=== PATIENT | female | born 1960 | race Caucasian/White ===

== ENCOUNTER 2017-05-07 21:41 | Observation (INO) | payer MEDICARE, MEDICAID ==
[2017-05-07] MEDS ORDERED: ASPIRIN 81 MG CHEWABLE TABLET PO ONE (21:45)
[2017-05-07 21:55] LABS: BASO % 0.5 % (0-6); EOS % 1.6 % (0-6); GRAN % 62.6 % (47-80); HEMATOCRIT 46.2 % (35.0-47.0); LYMPH % 26.6 % (16-45); MEAN CELL VOLUME 79.2 fl (81-97); MEAN CORPUSCULAR HEMOGLOBIN 25.7 pg (27-33); MEAN CORPUSCULAR HGB CONC 32.5 g/dl (32-36); MEAN PLATELET VOLUME 10.3 fl (7.4-10.4); MONO % 8.7 % (0-9); PLATELET COUNT 269 K/uL (130-400); RED BLOOD COUNT 5.83 M/uL (3.80-5.40); WHITE BLOOD COUNT W/O DIFF 10.9 K/uL (4.2-12.2)
--- NOTE | 2017-05-07 21:55 | Emergency Department Record ---
History of Present Illness - General Chief Complaint: Chest Pain Stated Complaint: CHEST PAIN Time Seen by Provider: 05/07/17 21:44 Source: Patient Mode of Arrival: Ambulatory Limitations: No limitations - History of Present Illness Initial Comments: 56 yo female presents to ED with a CC of chest pain x 1.5 hours prior to arrival. Patient reports that her symptoms have been constant, denies fevers, chills, cough, or recent illness. Patient deneis any precipitating factors, denies difficulty breathing or lower extremity swelling/pain. Patient denies previous heart problems. Patient did receive ASA and Nitro prior to arrival. MD Complaint: Chest pain Onset/Timin -: Minutes(s) Pain Location: Substernal Pain Radiation: None Severity: Moderate Severity scale (1-10): 5 Consistency: Constant Improves With: Nothing Worsens With: Nothing - Related Data On Oral Contraceptives: No Home Medications Medication Instructions Recorded Confirmed Last Taken Aspirin [Aspirin EC] 81 mg PO DAILY 05/07/17 05/07/17 05/07/17 Ferrous Sulfate 325 mg PO BID 05/07/17 05/07/17 05/07/17 Furosemide 40 mg PO DAILY 05/07/17 05/07/17 05/07/17 Lorazepam [Ativan] 1 mg PO TID 05/07/17 05/07/17 05/07/17 Metolazone [Zaroxolyn] 2.5 mg PO DAILY 05/07/17 05/07/17 05/07/17 Potassium Chloride [Klor-Con] 10 meq PO BID 05/07/17 05/07/17 05/07/17 Trazodone HCl 50 mg PO QHS 05/07/17 05/07/17 05/06/17 Allergies Allergy/AdvReac Type Severity Reaction Status Date / Time haloperidol [From Haldol] Allergy PT UNSURE Verified 05/07/17 22:01 OF REACTION haloperidol lactate Allergy PT UNSURE Verified 05/07/17 22:01 [From Haldol] OF REACTION lamotrigine [From Lamictal] Allergy PT UNSURE Verified 05/07/17 22:01 OF REACTION loxapine HCl [From Loxitane] Allergy PT UNSURE Verified 05/07/17 22:01 OF REACTION loxapine succinate Allergy PT UNSURE Verified 05/07/17 22:01 [From Loxitane] OF REACTION Sulfa (Sulfonamide Allergy PT UNSURE Verified 05/07/17 22:01 Antibiotics) OF REACTION Review of Systems Constitutional: Denies: Chills, Fever, Malaise, Night sweats Eyes: Denies: Eye discharge, Eye pain ENT: Denies: Congestion, Ear pain, Epistaxis Respiratory: Denies: Cough, Dyspnea Cardiovascular: Reports: Chest pain. Denies: Edema, Syncope Endocrine: Denies: Fatigue, Heat or cold intolerance Gastrointestinal: Denies: Abdominal pain, Nausea, Vomiting Genitourinary: Denies: Dysuria, Frequency Musculoskeletal: Denies: Arthralgia, Back pain, Gout, Joint swelling Skin: Denies: Bruising, Change in color Neurological: Denies: Confusion, Headache Psychiatric: Denies: Anxiety Hematological/Lymphatic: Denies: Anemia, Blood Clots Past Medical History - SOCIAL HISTORY Smoking Status: Never smoker Drug Use: None - RESPIRATORY Hx Respiratory Disorders: No - CARDIOVASCULAR Hx Cardio Disorders: Yes Hx Deep Vein Thrombosis: Yes - NEURO Hx Neuro Disorders: No - GI Hx GI Disorders: No - Hx Genitourinary Disorders: No - ENDOCRINE Hx Endocrine Disorders: No - MUSCULOSKELETAL Hx Musculoskeletal Disorders: No - PSYCH Hx Psych Problems: Yes Hx Anxiety: Yes Hx Depression: Yes (bipolar) - HEMATOLOGY/ONCOLOGY Hx Hematology/Oncology Disorders: No Family Medical History Family Hx Comment (NOT TO BE USED IN PLACE OF ITEMS BELOW): unknown Physical Exam - General General Appearance: Alert, Oriented x3, Cooperative, Mild distress Limitations: No limitations - Head Head exam: Atraumatic, Normocephalic, Normal inspection Head exam detail: negative: Abrasion, Contusion, Bennett's sign, General tenderness, Hematoma, Laceration - Eye Eye exam: Normal appearance. negative: Conjunctival injection, Periorbital swelling, Periorbital tenderness, Scleral icterus - ENT Ear exam: negative: Auricular hematoma, Auricular trauma Nasal Exam: negative: Active bleeding, Discharge, Dried blood, Foreign body Mouth exam: negative: Drooling, Laceration, Muffled voice, Tongue elevation - Neck Neck exam: Normal inspection. negative: Meningismus, Tenderness - Respiratory Respiratory exam: Normal lung sounds bilaterally. negative: Rales, Respiratory distress, Rhonchi, Stridor - Cardiovascular Cardiovascular Exam: Regular rate, Normal rhythm, Normal heart sounds - GI/Abdominal GI/Abdominal exam: Soft. negative: Rebound, Rigid, Tenderness - Rectal Rectal exam: Deferred - exam: Deferred - Extremities Extremities exam: Normal inspection. negative: Calf tenderness, Pedal edema, Tenderness - Back Back exam: Denies: CVA tenderness (R), CVA tenderness (L) - Neurological Neurological exam: Alert, Oriented X3. negative: Motor sensory deficit - Psychiatric Psychiatric exam: Normal affect, Normal mood - Skin Skin exam: Normal color. negative: Abrasion Type of lesion: negative: abrasion Course - Reevaluation(s) Reevaluation #1: 05/07/17 21:54 EKG: NSR 63 IVCD, Normal axis Nonspecific ST-T wave changes III only No previous available for comparison. Reevaluation #2: 05/07/17 23:08 Labs reviewed, potassium 2.4 (replacement potassium ordered). Labs are otherwise grossly unremarkable for an acute process. Will admit for severe hypokalemia and repeat Troponins. Medical Decision Making - Lab Data Result diagrams: 05/07/17 21:48 05/07/17 21:48 Disposition Disposition: Admit Clinical Impression: Hypokalemia Chest pain Qualifiers: Chest pain type: unspecified Qualified Code(s): R07.9 - Chest pain, unspecified Disposition: Still a Patient at [facility] Decision to Admit: Admit from ER Decision to Admit Date: 05/07/17 Decision to Admit Time: 23:09 Condition: (2) Stable Forms: Patient Portal Access Time of Disposition: 23:09 Quality - Quality Measures Quality Measures: N/A - Blood Pressure Screening Does Patient Have Any of the Following: No Blood Pressure Classification: Hypertensive Reading Systolic Measurement: 117 Diastolic Measurement: 102 Screening for High Blood Pressure: < First Hypertensive BP, F/U Documented > [ [id number]] First Hypertensive Follow-up Interventions: Referral to alternative/primary care provider.
[2017-05-07 22:19] LABS: ALB/GLOB RATIO 1.3 (1.1-1.8); ALBUMIN 4.5 g/dL (4.0-5.0); ALKALINE PHOSPHATASE 80 U/L (35-104); ALT/SGPT 17 U/L (<33); AST/SGOT 19 U/L (10.0-35.0); BLOOD UREA NITROGEN 56.2 mg/dL (12.6-42.6); CREATININE 0.8 mg/dL (0.5-0.9); EST GLOMERULAR FILTRATION RATE > 60 mL/min; GLUCOSE,RANDOM 168 mg/dL (74-109); TOTAL PROTEIN 8.1 g/dL (6.6-8.7)
[2017-05-07] MEDS ORDERED: MAGNESIUM SULFATE 16 MEQ in 0.9 % SODIUM CHLORIDE 100ML 100 ML IV ONE (23:10)
[2017-05-07] MEDS ORDERED: POTASSIUM CHLORIDE 20 MEQ TABLET PO ONE (23:10)
[2017-05-07] MEDS ORDERED: SOD CHLOR 0.9% WITH KCL 40MEQ 40 MEQ/1,000 ML IV.SOLN IV SCH (23:15)
[2017-05-07] MEDS ORDERED: NITROGLYCERIN 0.4MG SL TABLET #25 BTL SL PRN (23:51)
[2017-05-08 08:32] LABS: BLOOD UREA NITROGEN 48.5 mg/dL (12.6-42.6); CREATININE 0.5 mg/dL (0.5-0.9); EST GLOMERULAR FILTRATION RATE > 60 mL/min; GLUCOSE,RANDOM 99 mg/dL (74-109)
--- NOTE | 2017-05-08 09:05 | History & Physical ---
History of Present Illness - Date of Service Date of Service for History & Physical: 05/08/17 - History of Present Illness Admitting Diagnosis: Hypokalemia. Atypical chest pain History of Present Illness: 56 y/o female with CC chest pain admitted for atypical chest pain and hypokalemia. Past medical history includes DVT, anxiety, schizoaffective disorder, bipolar disorder. Past Surgical History gallbladder History is provided by [facility] staff as patient is somnolent, mostly non- verbal except 1-2 word answers. Prior to arrival was having 1.5 hours of midsternal chest pain. No report of pain radiating down left arm or back. Has been afebrile, no recent illness, cough, chills vomiting or diarrhea. Patient and [facility] staff deniy any CYRUS. Per staff patient was at [facility] ED for hypokalema and discharged back to the home with continued low levels (were not able to report exact last known potassium levels). Was started on Zaroxolyn for peripheral edema 3 days ago with initiation of potassium 10mEq BID yesterday. Is also taking Lasix 40mg daily. Patient has long standing history of bipolar disorder and schizoaffective disorder. Her psych meds have been adjusted recently which has caused a new baseline of somnolence. While in ED potassium was 2.4. EKG NSR with atypical conduction delay. Given oral potassium, magnesium and started on IV replacement. Troponin 0.03. Admitted to floor for continued IV replacement of potassium, telemetry. 05/08/17- resting in bed comfortably, non-verbal, holds minimal eye contact but is alert. Per [facility] staff she is at her baseline function and behavior. No new concerns from staff. Potassium has normalized this am to 4.1. PCP: [facility] physician Travel Screening - Travel/Exposure Within Last 30 Days Have you traveled within the last 30 days?: No - Travel/Exposure Within Last Year Have you traveled outside the [place] in the last year?: No - Additonal Travel Details Have you been exposed to anyone with a communicable illness?: No - Travel Symptoms Symptom Screening: None Review of Systems Constitutional: Denies: Chills, Fever, Malaise, Night sweats Eyes: Denies: Eye discharge, Eye pain ENT: Denies: Congestion, Ear pain, Epistaxis Respiratory: Denies: Cough, Dyspnea Cardiovascular: Reports: Chest pain. Denies: Edema, Syncope Endocrine: Denies: Fatigue, Heat or cold intolerance Gastrointestinal: Denies: Abdominal pain, Nausea, Vomiting Genitourinary: Denies: Dysuria, Frequency Musculoskeletal: Denies: Arthralgia, Back pain, Gout, Joint swelling Skin: Denies: Bruising, Change in color Neurological: Denies: Confusion, Headache Psychiatric: Denies: Anxiety Hematological/Lymphatic: Denies: Anemia, Blood Clots Past Medical History - SOCIAL HISTORY Smoking Status: Never smoker - RESPIRATORY Hx Respiratory Disorders: No - CARDIOVASCULAR Hx Cardio Disorders: Yes Hx Deep Vein Thrombosis: Yes - NEURO Hx Neuro Disorders: No - GI Hx GI Disorders: No - Hx Genitourinary Disorders: No - ENDOCRINE Hx Endocrine Disorders: No - MUSCULOSKELETAL Hx Musculoskeletal Disorders: No - PSYCH Hx Psych Problems: Yes Hx Anxiety: Yes Hx Behavior Problems: Yes (schizoaffective disorder) Hx Depression: Yes (bipolar) Major Depressive Episode: Yes Feelings of Hopelessness: Yes - HEMATOLOGY/ONCOLOGY Hx Hematology/Oncology Disorders: No Family Medical History Any Significant Family History?: No Family Hx Comment (NOT TO BE USED IN PLACE OF ITEMS BELOW): unknown H&P Meds/Allergies - Allergies Allergies: Allergies Allergy/AdvReac Type Severity Reaction Status Date / Time haloperidol [From Haldol] Allergy PT UNSURE Verified 05/07/17 22:01 OF REACTION haloperidol lactate Allergy PT UNSURE Verified 05/07/17 22:01 [From Haldol] OF REACTION lamotrigine [From Lamictal] Allergy PT UNSURE Verified 05/07/17 22:01 OF REACTION loxapine HCl [From Loxitane] Allergy PT UNSURE Verified 05/07/17 22:01 OF REACTION loxapine succinate Allergy PT UNSURE Verified 05/07/17 22:01 [From Loxitane] OF REACTION Sulfa (Sulfonamide Allergy PT UNSURE Verified 05/07/17 22:01 Antibiotics) OF REACTION - Home Medications Home Medications Medication Instructions Recorded Confirmed Last Taken Aspirin [Aspirin EC] 81 mg PO DAILY 05/07/17 05/07/17 05/07/17 Ferrous Sulfate 325 mg PO BID 05/07/17 05/07/17 05/07/17 Furosemide 40 mg PO DAILY 05/07/17 05/07/17 05/07/17 Lorazepam [Ativan] 1 mg PO TID 05/07/17 05/07/17 05/07/17 Potassium Chloride [Klor-Con] 10 meq PO BID 05/07/17 05/07/17 05/07/17 Trazodone HCl 50 mg PO QHS 05/07/17 05/07/17 05/06/17 - Active Medications Active Medications: Current Medications Aspirin (Ecotrin (Ec)) 325 mg PO DAILY SHERICE Nitroglycerin (Nitrostat 0.4mg) 0.4 mg SL Q5MIN PRN PRN Reason: CHEST PAIN Physical Exam - Vital Signs Vital Signs: Vital Signs - Last 24 Hrs Temp Pulse Resp BP BP Pulse Ox 05/08/17 08:32 16 05/08/17 05:51 97.6 F 67 16 124/71 94 L 05/08/17 01:46 97.5 F L 56 L 16 125/71 96 05/07/17 23:55 97.6 F 51 L 18 147/78 94 L - General General Appearance: Alert, Cooperative, No acute distress Limitations: No limitations, Other (schizoaffective and bipolar disorder, somnolence) - Head Head exam: Atraumatic, Normocephalic, Normal inspection Head exam detail: negative: Abrasion, Contusion, Bennett's sign, General tenderness, Hematoma, Laceration - Eye Eye exam: Normal appearance. negative: Conjunctival injection, Periorbital swelling, Periorbital tenderness, Scleral icterus - ENT Ear exam: negative: Auricular hematoma, Auricular trauma Nasal Exam: negative: Active bleeding, Discharge, Dried blood, Foreign body Mouth exam: negative: Drooling, Laceration, Muffled voice, Tongue elevation - Neck Neck exam: Normal inspection. negative: Meningismus, Tenderness - Respiratory Respiratory exam: Normal lung sounds bilaterally. negative: Rales, Respiratory distress, Rhonchi, Stridor - Cardiovascular Cardiovascular Exam: Regular rate, Normal rhythm, Normal heart sounds - GI/Abdominal GI/Abdominal exam: Soft. negative: Rebound, Rigid, Tenderness - Rectal Rectal exam: Deferred - exam: Deferred - Extremities Extremities exam: Normal inspection. negative: Calf tenderness, Pedal edema, Tenderness - Back Back exam: Denies: CVA tenderness (R), CVA tenderness (L) - Neurological Neurological exam: Alert, Reflexes normal. negative: Motor sensory deficit - Psychiatric Psychiatric exam: Flat affect - Skin Skin exam: Normal color. negative: Abrasion Type of lesion: negative: abrasion Results - Labs Result Diagrams: 05/07/17 21:48 05/08/17 08:00 Labs Last 24 Hours: Laboratory Results - last 24 hr 05/08/17 08:00 Sodium 137 Potassium 4.1 Chloride 94 L Carbon Dioxide 29.0 Anion Gap 14.0 BUN 48.5 H Creatinine 0.5 Estimated GFR > 60 Random Glucose 99 Calcium 8.9 - Imaging and Cardiology Chest x-ray Status: Report reviewed (negative for acute process) VTE H&P Assessment - Risk for VTE Risk for VTE: Yes Risk Level: Moderate Risk Assessment Date: 05/08/17 Risk Assessment Time: 09:02 VTE Orders Placed or Will Be Placed: Yes Plan - Detailed Diagnosis and Plan (1) Hypokalemia Status: Acute Base Code: E87.6 - HYPOKALEMIA Comment: 05/08/17 - likely related to diuretic therapy with inadequate potassium supplementation - IV and oral potassium replacement initiated in ED - potassium normalized this am at 4.4 - tele has remained NSR, no arrhythmic events since admission - Zaroxolyn on hold until follow up with PCP - continue with potassium 10mEq - repeat BMP on Wednesday - follow up with PCP 1 week (2) Chest pain Status: Acute Qualifiers: Chest pain type: unspecified Qualified Code(s): R07.9 - Chest pain, unspecified Base Code: R07.9 - CHEST PAIN, UNSPECIFIED Comment: 05/08/17 - troponin x2 normal - CXR normal - chest pain resolved, atypical in nature - tele NSR without any arrythmic events since admission (3) DVT prophylaxis Status: Acute Base Code: [id number] - Comment: 05/09/17 - PMX DVT, not on current anticoagulation therapy - nursing to encourage frequent ambulation (4) Full code status Status: Acute Base Code: Z78.9 - OTHER SPECIFIED HEALTH STATUS Comment: 05/08- will remain full code during this hospitalzation
--- NOTE | 2017-05-08 09:12 | RADIOLOGY REPORT ---
DATE: 05/07/2017 at 2216. EXAM: AP CHEST. HISTORY: Acute midchest pain. COMPARISON: None. TECHNIQUE: AP of the chest was obtained. FINDINGS: Compromised study due to portable technique, lordotic positioning, and body habitus. Low lung volumes. Fine linear density in the right midlung. The left lung is clear. Cardiac silhouette, diaphragm, and osseus structures are grossly unremarkable. IMPRESSION: LOW LUNG VOLUMES. FINE LINEAR SCARRING OR DISCOID ATELECTASIS, RIGHT MIDLUNG. NO OTHER ACUTE PROCESS. JOB NUMBER: [id number] MTDD
[2017-05-08] MEDS ORDERED: ASPIRIN 325 MG TAB ENTERIC-COATED PO SCH (10:00)
--- NOTE | 2017-05-08 13:37 | Discharge Summary ---
Providers Discharge Summary Date: 05/08/17 Date of admission: 05/07/17 23:46 Expected Date of Discharge: 05/08/17 Attending physician: SCAR ABDUL Physical Exam - Vital Signs Vital Signs: Vital Signs - Last 24 Hrs Temp Pulse Resp BP BP Pulse Ox 05/08/17 09:00 63 18 136/74 92 L 05/08/17 08:32 16 05/08/17 05:51 97.6 F 67 16 124/71 94 L 05/08/17 01:46 97.5 F L 56 L 16 125/71 96 05/07/17 23:55 97.6 F 51 L 18 147/78 94 L - General General Appearance: Alert, Oriented x3, Cooperative, Mild distress Limitations: No limitations - Head Head exam: Atraumatic, Normocephalic, Normal inspection Head exam detail: negative: Abrasion, Contusion, Bennett's sign, General tenderness, Hematoma, Laceration - Eye Eye exam: Normal appearance. negative: Conjunctival injection, Periorbital swelling, Periorbital tenderness, Scleral icterus - ENT Ear exam: negative: Auricular hematoma, Auricular trauma Nasal Exam: negative: Active bleeding, Discharge, Dried blood, Foreign body Mouth exam: negative: Drooling, Laceration, Muffled voice, Tongue elevation - Neck Neck exam: Normal inspection. negative: Meningismus, Tenderness - Respiratory Respiratory exam: Normal lung sounds bilaterally. negative: Rales, Respiratory distress, Rhonchi, Stridor - Cardiovascular Cardiovascular Exam: Regular rate, Normal rhythm, Normal heart sounds - GI/Abdominal GI/Abdominal exam: Soft. negative: Rebound, Rigid, Tenderness - Rectal Rectal exam: Deferred - exam: Deferred - Extremities Extremities exam: Normal inspection. negative: Calf tenderness, Pedal edema, Tenderness - Back Back exam: Denies: CVA tenderness (R), CVA tenderness (L) - Neurological Neurological exam: Alert, Oriented X3. negative: Motor sensory deficit - Psychiatric Psychiatric exam: Normal affect, Normal mood - Skin Skin exam: Normal color. negative: Abrasion Type of lesion: negative: abrasion Hospitalization - Hospitalization Admission Diagnosis: Hypokalemia. Atypical chest pain - Problem List/Discharge Diagnosis (1) Hypokalemia Status: Acute Base Code: E87.6 - HYPOKALEMIA Comment: 05/08/17 - likely related to diuretic therapy with inadequate potassium supplementation - IV and oral potassium replacement initiated in ED - potassium normalized this am at 4.4 - tele has remained NSR, no arrhythmic events since admission - Zaroxolyn on hold until follow up with PCP - continue with potassium 10mEq - repeat BMP on Wednesday - follow up with PCP 1 week (2) Chest pain Status: Acute Discharge Diagnosis: Chest pain type: unspecified Qualified Code(s): R07.9 - Chest pain, unspecified Base Code: R07.9 - CHEST PAIN, UNSPECIFIED Comment: 05/08/17 - troponin x2 normal - CXR normal - chest pain resolved, atypical in nature - tele NSR without any arrythmic events since admission (3) DVT prophylaxis Status: Acute Base Code: [id number] - Comment: 05/09/17 - PMX DVT, not on current anticoagulation therapy - nursing to encourage frequent ambulation (4) Full code status Status: Acute Base Code: Z78.9 - OTHER SPECIFIED HEALTH STATUS Comment: 05/08- will remain full code during this hospitalzation - Hospitalization Course Disposition: [facility] Hospital Course: 56 y/o female with CC chest pain admitted for atypical chest pain and hypokalemia. Past medical history includes DVT, anxiety, schizoaffective disorder, bipolar disorder. Past Surgical History gallbladder History is provided by [facility] staff as patient is somnolent, mostly non- verbal except 1-2 word answers. Prior to arrival was having 1.5 hours of midsternal chest pain. No report of pain radiating down left arm or back. Has been afebrile, no recent illness, cough, chills vomiting or diarrhea. Patient and [facility] staff deniy any CYRUS. Per staff patient was at [facility] ED for hypokalema and discharged back to the home with continued low levels (were not able to report exact last known potassium levels). Was started on Zaroxolyn for peripheral edema 3 days ago with initiation of potassium 10mEq BID yesterday. Is also taking Lasix 40mg daily. Patient has long standing history of bipolar disorder and schizoaffective disorder. Her psych meds have been adjusted recently which has caused a new baseline of somnolence. While in ED potassium was 2.4. EKG NSR with atypical conduction delay. Given oral potassium, magnesium and started on IV replacement. Troponin 0.03. Admitted to floor for continued IV replacement of potassium, telemetry. 05/08/17- resting in bed comfortably, non-verbal, holds minimal eye contact but is alert. Per [facility] staff she is at her baseline function and behavior. No new concerns from staff. Potassium has normalized this am to 4.1. PCP: [facility] physician Abnormal Labs: Abnormal Lab Results 05/08/17 Range/Units 08:00 Chloride 94 L (98-107) mmol/L BUN 48.5 H (12.6-42.6) mg/dL Condition at Discharge: (2) Stable Discharge Medications - Discharge Medications Home Medications: Ambulatory Orders Carvedilol [Coreg] 3.125 mg PO BID 04/30/16 [Last Taken 05/07/17] Levothyroxine Sodium 75 mcg PO DAILY 04/30/16 [Last Taken 05/07/17] Rivaroxaban [Xarelto] 20 mg PO DAILY 04/30/16 [Last Taken 05/07/17] Olanzapine [Zyprexa] 30 mg PO QHS 03/09/17 [Last Taken 05/07/17] Pantoprazole Sodium [Protonix] 40 mg PO DAILY 03/09/17 [Last Taken 05/07/17] Aspirin [Aspirin EC] 81 mg PO DAILY 05/07/17 [Last Taken 05/07/17] Ferrous Sulfate 325 mg PO BID 05/07/17 [Last Taken 05/07/17] Furosemide 40 mg PO DAILY 05/07/17 [Last Taken 05/07/17] Lorazepam [Ativan] 1 mg PO TID 05/07/17 [Last Taken 05/07/17] Potassium Chloride [Klor-Con] 10 meq PO BID 05/07/17 [Last Taken 05/07/17] Trazodone HCl 50 mg PO QHS 05/07/17 [Last Taken 05/06/17] Discharge Plan - Discharge Instructions Activity at Discharge: Increase Activity as Tolerated Diet at Discharge: Advance to Usual Diet Instructions: Hypokalemia (DC) Additional Instructions: Stop Zaroxolyn Continue potassium 10mEq twice daily Repeat BMP on Wednesday. Outpatient labs Follow up with your doctor in 5-7 days Eat and drink things high in potassium ie, orange juice, bannanas Activity as tolerated. Quality Measures - Quality Measures Quality Measures: Documentation of Current Medications in Medical Record, Screening for High Blood Pressure and F/U Documented - Current Medications Quality Measure: Measure #130: Documentation of Current Medications Documentation of Current Medications: <Current Medications Documented/Reviewed> [G8427] - Blood Pressure Screening Quality Measure: Screening for High Blood Pressure and Follow-Up Documented Does Patient Have Any of the Following: No Blood Pressure Classification: Hypertensive Reading Systolic Measurement: 117 Diastolic Measurement: 102 Screening for High Blood Pressure: Patient Exclusion, Hx of HTN [G9744] - Elder Abuse Suspicion Index EASI Reference Information: Coleman PELAYO, Marcella C, Austin D, Jose Peralta.Development and validation of a tool to assist physicians identification of elder abuse: The Elder Abuse Suspicion Index (EASI ). Journal of Elder Abuse and Neglect, 2008; 20 (3): 276-300.
== END 2017-05-08 17:25 ==
LOC: ER 21:41 → MEDSURG 23:46
PROVIDERS: ADMIT Family Medicine; ATTEND Family Medicine
DX: R07.89 Other chest pain (principal); E87.6 Hypokalemia; Z86.718 Personal history of other venous thrombosis and embolism; F25.0 Schizoaffective disorder, bipolar type
CPT/HCPCS: 93041; 99285 ×2; 96360; 83735; 85025; 84484 ×2; 80048; 80053; 71010; 93005; 93010; G0378 ×2; 99223

== ENCOUNTER 2017-09-16 16:05 | Emergency (ER) | payer MEDICARE, MEDICAID ==
[2017-09-16] MEDS ORDERED: SODIUM CHLORIDE 0.9% 500 ML IV ONE ×2 (16:31→18:04)
--- NOTE | 2017-09-16 16:38 | Emergency Department Record ---
History of Present Illness <Kenya Gibbons Mlacolm - Last Filed: 09/17/17 06:23> - General Source: Patient Mode of Arrival: Wheelchair Limitations: No limitations - History of Present Illness Initial Comments: 56 yo female presents with decreased interaction, non verbal but alert that has been progressive for a few weeks. She has a history of schizoaffective and bipolar. She has had these episodes many times in the past. [facility] She is now now cooperating with staff with eating, drinking or medications. The caregiver reports no recent illness, trauma or other significant changes. The patient is ambulatory but she stares blankly and will not speak. She has behavioral health care through [facility]. She has had many admissions in the past for catatonic behavior with the most recent being [facility] in June. Complaint: Altered mental status Onset/Timin -: Week(s) Severity: Moderate Consistency: Constant Context: History of similar presentation Associated Symptoms: Denies other symptoms Treatment Prior to Arrival Comment:: No prior Treatment. - [place] Coma Scale Eye Response: (4) Open spontaneously <MOSHE WHITESIDE - Last Filed: 09/17/17 17:08> - General Chief Complaint: Altered Mental Status Stated Complaint: ALTERED MENTAL STATE Time Seen by Provider: 09/16/17 16:29 - Related Data Home Medications Medication Instructions Recorded Confirmed Last Taken Calcium Polycarbophil [Fiber] 625 mg PO DAILY 09/16/17 09/16/17 1 Day Ago ~09/15/17 Fluoxetine HCl [Prozac] 10 mg PO DAILY 09/16/17 09/17/17 1 Day Ago ~09/15/17 Meloxicam 15 mg PO DAILY 09/16/17 09/16/17 1 Day Ago ~09/15/17 Olanzapine 10 mg PO QPM 09/16/17 09/16/17 1 Day Ago ~09/15/17 Allergies Allergy/AdvReac Type Severity Reaction Status Date / Time haloperidol [From Haldol] Allergy PT UNSURE Verified 09/16/17 17:15 OF REACTION haloperidol lactate Allergy PT UNSURE Verified 09/16/17 17:15 [From Haldol] OF REACTION lamotrigine [From Lamictal] Allergy PT UNSURE Verified 09/16/17 17:15 OF REACTION loxapine HCl [From Loxitane] Allergy PT UNSURE Verified 09/16/17 17:15 OF REACTION loxapine succinate Allergy PT UNSURE Verified 09/16/17 17:15 [From Loxitane] OF REACTION Sulfa (Sulfonamide Allergy PT UNSURE Verified 09/16/17 17:15 Antibiotics) OF REACTION Travel Screening - Travel/Exposure Within Last 30 Days Have you traveled within the last 30 days?: No - Travel/Exposure Within Last Year Have you traveled outside the [place] in the last year?: No - Additonal Travel Details Have you been exposed to anyone with a communicable illness?: No - Travel Symptoms Symptom Screening: None <MOSHE WHITESIDE - Last Filed: 09/17/17 17:08> Review of Systems ROS unobtainable: Due to mental status, Other (Refusing to talk) <MOSHE WHITESIDE - Last Filed: 09/17/17 17:08> Past Medical History - SOCIAL HISTORY Smoking Status: Unknown if ever smoked Alcohol Use: None Drug Use: None - RESPIRATORY Hx Respiratory Disorders: No - CARDIOVASCULAR Hx Cardio Disorders: Yes Hx Deep Vein Thrombosis: Yes - NEURO Hx Neuro Disorders: No - GI Hx GI Disorders: No - Hx Genitourinary Disorders: No - ENDOCRINE Hx Endocrine Disorders: No - MUSCULOSKELETAL Hx Musculoskeletal Disorders: No - PSYCH Hx Psych Problems: Yes Hx Anxiety: Yes Hx Behavior Problems: Yes (schizoaffective disorder) Hx Depression: Yes (bipolar) - HEMATOLOGY/ONCOLOGY Hx Hematology/Oncology Disorders: No <MOSHE WHITESIDE - Last Filed: 09/17/17 17:08> Family Medical History Any Significant Family History?: No Family Hx Comment (NOT TO BE USED IN PLACE OF ITEMS BELOW): unknown <MOSHE WHITESIDE - Last Filed: 09/17/17 17:08> Physical Exam - General General Appearance: Alert, Cooperative, No acute distress, Other (sitting awake , alert, makes good eye contact but will not speak) Limitations: Altered mental status - Head Head exam: Atraumatic, Normocephalic, Normal inspection - Eye Eye exam: Normal appearance, PERRL. negative: Conjunctival injection, Scleral icterus - ENT ENT exam: Normal exam, Mucous membranes moist Ear exam: Normal external inspection Nasal Exam: Normal inspection Mouth exam: Normal external inspection - Neck Neck exam: Normal inspection - Respiratory Respiratory exam: Normal lung sounds bilaterally. negative: Respiratory distress - Cardiovascular Cardiovascular Exam: Regular rate, Normal rhythm, Normal heart sounds Peripheral Pulses: 2+: Radial (R), Radial (L) - GI/Abdominal GI/Abdominal exam: Soft. negative: Tenderness - Rectal Rectal exam: Deferred - exam: Deferred - Extremities Extremities exam: Normal inspection, Full ROM - Back Back exam: Denies: CVA tenderness (R), CVA tenderness (L) - Neurological Neurological exam: Alert, Normal gait (ambulated without assistance). negative : Oriented X3 - Psychiatric Psychiatric exam: Depressed, Flat affect. negative: Normal affect, Normal mood - Skin Skin exam: Dry, Intact, Normal color, Warm <MOSHE WHITESIDE - Last Filed: 09/17/17 17:08> Course Vital Signs 09/16/17 09/16/17 16:18 18:31 Temperature 98.8 F Pulse Rate 82 Pulse Rate [ 80 Left] Respiratory 18 16 Rate Blood Pressure 110/92 Blood Pressure 132/67 [Right Arm] Pulse Ox 93 L 95 - Reevaluation(s) Reevaluation #2: 09/16/17 19:55 pt resting, still awaiting bed at [facility] Reevaluation #3: 09/17/17 03:01 pt is doing well. resting. states she does not want anything to drink Reevaluation #4: 09/17/17 06:24 pt is resting. bed at [facility] still pending. pt being offered breakfast <Kenya Gibbons - Last Filed: 09/17/17 06:23> Vital Signs 09/16/17 16:18 Temperature 98.8 F Pulse Rate 82 Respiratory 18 Rate Blood Pressure 110/92 Pulse Ox 93 L - Reevaluation(s) Reevaluation #1: 09/16/17 16:40 The EMR was reviewed The patient has similar presentations in the past 09/16/17 17:54 No acute changes on the CBC The UDS is negative for any acute positives except benzo's 09/16/17 18:05 The UA was reviewed. Nitrite and LE negative for signs of infection. 09/16/17 18:11 The Salicylate, Acetaminophen, and Alcohol are negative 09/16/17 18:13 The CMP was reviewed. Mild increase in AG but normal HCO# The patient has been hydrated during stay. She is medically cleared [facility] will be contacted at this point Reevaluation #5: 09/17/17 07:18 The case was signed out at turnover The patient is waiting for [facility] crisis services bed The overnight report was the patient was cooperative with care in the ED. Anticipating transfer this morning for evaluation 09/17/17 08:15 [facility] informed the RN that they have 2 patients prior to [facility] and still no crisis bed available. IVF continue to avoid any dehydration. 09/17/17 09:35 [facility] was contacted again. No crisis beds available yet. 09/17/17 12:20 [facility] updated that they are placing the patient directly 09/17/17 14:18 [facility] again states no bed available. [facility] was informed of the patient's medical clearance at [facility] and very limit resources for prolonged care given we are a Critical Access hospital. 09/17/17 16:04 [facility] called to state the patient is accepted at [facility]. Waiting for bed assignment. 09/17/17 16:38 The patient was accepted to [facility] by Dr Mera <MOSHE WHITESIDE - Last Filed: 09/17/17 17:08> Medical Decision Making - Lab Data Result diagrams: 09/16/17 17:35 09/16/17 17:35 Lab Results 09/16/17 09/16/17 09/16/17 Range/Units 16:31 16:31 17:35 WBC 8.1 (4.2-12.2) K/uL RBC 5.19 (3.80-5.40) M/uL Hgb 14.6 (11.6-16.0) gm/dl Hct 44.6 (35.0-47.0) % MCV 85.9 (81-97) fl MCH 28.1 (27-33) pg MCHC 32.7 (32-36) g/dl RDW 14.1 (11.5-14.5) % Plt Count 257 (130-400) K/uL MPV 9.8 (7.4-10.4) fl Gran % 74.6 (47-80) % Lymphocytes % 16.0 (16-45) % Monocytes % 9.1 H (0-9) % Eosinophils % 0.1 (0-6) % Basophils % 0.2 (0-6) % PT (9.5-12.1) SECONDS INR APTT (24.5-39.1) SECONDS Sodium (136-145) mmol/L Potassium (3.4-4.5) mmol/L Chloride (98-107) mmol/L Carbon Dioxide (22-29) mmol/L Anion Gap (7-16) BUN (6-20) mg/dL Creatinine (0.5-0.9) mg/dL Estimated GFR mL/min Random Glucose (74-109) mg/dL Calcium (8.6-10.0) mg/dL Total Bilirubin (0.2-1.0) mg/dL AST (10.0-35.0) U/L ALT (<33) U/L Alkaline Phosphatase (35-104) U/L Total Protein (6.6-8.7) g/dL Albumin (4.0-5.0) g/dL Globulin (1.4-4.8) gm/dL Albumin/Globulin Ratio (1.1-1.8) TSH (0.270-4.20) uIU/mL Urine Color Yellow Urine Appearance Clear Urine pH 6.0 (5.0-8.0) Ur Specific Lyndon >= 1.030 (1.002-1.030) Urine Protein 100 mg/dl H (NEGATIVE) Urine Glucose (UA) Negative (NEGATIVE) Urine Ketones 15 mg/dl H (NEGATIVE) Urine Blood Large H (NEGATIVE) Urine Nitrite Negative (NEGATIVE) Urine Bilirubin Moderate H (NEGATIVE) Urine Urobilinogen 1.0 (0.20 - 1.00) E.U./dL Ur Leukocyte Esterase Negative (NEGATIVE) Urine RBC 21 - 35 (NONE SEEN) Urine WBC 3 - 5 (0-2/hpf) Ur Epithelial Cells 7 - 10 (FEW) Urine Mucus Heavy Salicylates (2.8-20) mg/dL Urine Opiates Screen Not detected Ur Oxycodone Screen Not detected Urine Methadone Screen Not detected Ur Propoxyphene Screen Not detected Acetaminophen (10.0-30.0) ug/mL Ur Barbituates Screen Not detected Ur Tricyclics Screen Not detected Ur Phencyclidine Scrn Not detected Ur Amphetamine Screen Not detected U Methamphetamines Scrn Not detected U Benzodiazepines Scrn Detected Urine Cocaine Screen Not detected Urine Cannabis Screen Not detected Ethyl Alcohol (0-0.010) g/dL 09/16/17 09/16/17 Range/Units 17:35 17:35 WBC (4.2-12.2) K/uL RBC (3.80-5.40) M/uL Hgb (11.6-16.0) gm/dl Hct (35.0-47.0) % MCV (81-97) fl MCH (27-33) pg MCHC (32-36) g/dl RDW (11.5-14.5) % Plt Count (130-400) K/uL MPV (7.4-10.4) fl Gran % (47-80) % Lymphocytes % (16-45) % Monocytes % (0-9) % Eosinophils % (0-6) % Basophils % (0-6) % PT 11.4 (9.5-12.1) SECONDS INR 1.05 APTT 23.80 L (24.5-39.1) SECONDS Sodium 143 (136-145) mmol/L Potassium 3.7 (3.4-4.5) mmol/L Chloride 100 (98-107) mmol/L Carbon Dioxide 24.0 (22-29) mmol/L Anion Gap 19.0 H (7-16) BUN 28 H (6-20) mg/dL Creatinine 0.8 (0.5-0.9) mg/dL Estimated GFR > 60 mL/min Random Glucose 77 (74-109) mg/dL Calcium 9.5 (8.6-10.0) mg/dL Total Bilirubin 0.50 (0.2-1.0) mg/dL AST 23 (10.0-35.0) U/L ALT 21 (<33) U/L Alkaline Phosphatase 79 (35-104) U/L Total Protein 7.1 (6.6-8.7) g/dL Albumin 4.2 (4.0-5.0) g/dL Globulin 2.9 (1.4-4.8) gm/dL Albumin/Globulin Ratio 1.4 (1.1-1.8) TSH 0.84 (0.270-4.20) uIU/mL Urine Color Urine Appearance Urine pH (5.0-8.0) Ur Specific Lyn[place] (1.002-1.030) Urine Protein (NEGATIVE) Urine Glucose (UA) (NEGATIVE) Urine Ketones (NEGATIVE) Urine Blood (NEGATIVE) Urine Nitrite (NEGATIVE) Urine Bilirubin (NEGATIVE) Urine Urobilinogen (0.20 - 1.00) E.U./dL Ur Leukocyte Esterase (NEGATIVE) Urine RBC (NONE SEEN) Urine WBC (0-2/hpf) Ur Epithelial Cells (FEW) Urine Mucus Salicylates < 0.3 L (2.8-20) mg/dL Urine Opiates Screen Ur Oxycodone Screen Urine Methadone Screen Ur Propoxyphene Screen Acetaminophen < 5.0 L (10.0-30.0) ug/mL Ur Barbituates Screen Ur Tricyclics Screen Ur Phencyclidine Scrn Ur Amphetamine Screen U Methamphetamines Scrn U Benzodiazepines Scrn Urine Cocaine Screen Urine Cannabis Screen Ethyl Alcohol 0.010 (0-0.010) g/dL <Kenya Gibbons - Last Filed: 09/17/17 06:23> - Lab Data Result diagrams: 09/16/17 17:35 09/16/17 17:35 <MOSHE WHITESIDE - Last Filed: 09/17/17 17:08> Disposition <Kenya Gibbons - Last Filed: 09/17/17 06:23> Disposition: Transfer Transfer To: [facility] Reason For Transfer: Schizoaffective,Bipolar Accepting Physician: Samaria Time Discussed w/Accepting Physician: 16:39 Time of Disposition: 18:15 <MOSHE WHITESIDE - Last Filed: 09/17/17 17:08> Clinical Impression: Schizoaffective disorder Qualifiers: Schizoaffective disorder type: bipolar Qualified Code(s): F25.0 - Schizoaffective disorder, bipolar type Disposition: Psych[facility] Condition: (2) Stable Forms: Patient Portal Access Quality - Blood Pressure Screening Does Patient Have Any of the Following: No Blood Pressure Classification: Hypertensive Reading Systolic Measurement: 110 Diastolic Measurement: 92 <Kenya Gibbons - Last Filed: 09/17/17 06:23> - Quality Measures Quality Measures: N/A - Blood Pressure Screening Does Patient Have Any of the Following: No Blood Pressure Classification: Hypertensive Reading Systolic Measurement: 110 Diastolic Measurement: 92 Screening for High Blood Pressure: < Pre-Hypertensive BP, F/U Documented > [ G8950] Pre-Hypertensive Follow-up Interventions: Referral to alternative/primary care provider. <MOSHE WHITESIDE - Last Filed: 09/17/17 17:08>
[2017-09-16 17:45] LABS: URINE APPEARANCE CLEAR; URINE BILIRUBIN MODERATE (NEGATIVE); URINE BLOOD LARGE (NEGATIVE); URINE COLOR YELLOW; URINE GLUCOSE (UA) NEGATIVE (NEGATIVE); URINE KETONE 15 mg/dL (NEGATIVE); URINE LEUKOCYTE ESTERASE NEGATIVE (NEGATIVE); URINE NITRITE NEGATIVE (NEGATIVE)
[2017-09-16 17:46] LABS: BASO % 0.2 % (0-6); EOS % 0.1 % (0-6); GRAN % 74.6 % (47-80); HEMATOCRIT 44.6 % (35.0-47.0); HEMOGLOBIN 14.6 gm/dl (11.6-16.0); MEAN CELL VOLUME 85.9 fl (81-97); MEAN CORPUSCULAR HEMOGLOBIN 28.1 pg (27-33); MEAN CORPUSCULAR HGB CONC 32.7 g/dl (32-36); MEAN PLATELET VOLUME 9.8 fl (7.4-10.4); MONO % 9.1 % (0-9); PLATELET COUNT 257 K/uL (130-400); RED BLOOD COUNT 5.19 M/uL (3.80-5.40); RED CELL DISTRIBUTION WIDTH 14.1 % (11.5-14.5); WHITE BLOOD COUNT W/O DIFF 8.1 K/uL (4.2-12.2)
[2017-09-16 17:50] LABS: AMPHETAMINE SCREEN URINE NOT DETECTED; BARBITURATE SCREEN URINE NOT DETECTED; BENZODIAZEPINE SCREEN URINE DETECTED; COCAINE SCREEN URINE NOT DETECTED; METHADONE SCREEN URINE NOT DETECTED; METHAMPHETAMINE SCREEN NOT DETECTED; OPIATE SCREEN URINE NOT DETECTED; OXYCODONE SCREEN URINE NOT DETECTED; PHENCYCLIDINE SCREEN URINE NOT DETECTED; PROPOXYPHENE SCREEN URINE NOT DETECTED; THC SCREEN URINE NOT DETECTED; TRICYCLIC ANTIDEPRESSANT SCRN NOT DETECTED
[2017-09-16 17:56] LABS: INR 1.05; PARTIAL THROMBOPLASTIN TIME 23.8 SECONDS (24.5-39.1); PROTHROMBIN TIME (PATIENT) 11.4 SECONDS (9.5-12.1)
[2017-09-16 17:56] LABS: URINE MUCUS HEAVY; URINE RBC 21 - 35 (NONE SEEN)
[2017-09-16 17:57] LABS: BLOOD UREA NITROGEN 28 mg/dL (6-20); CREATININE 0.8 mg/dL (0.5-0.9); EST GLOMERULAR FILTRATION RATE > 60 mL/min
[2017-09-16 17:58] LABS: TOTAL PROTEIN 7.1 g/dL (6.6-8.7)
[2017-09-16 18:00] LABS: GLUCOSE,RANDOM 77 mg/dL (74-109)
[2017-09-16 18:02] LABS: ALT/SGPT 21 U/L (<33)
[2017-09-16 18:03] LABS: ALB/GLOB RATIO 1.4 (1.1-1.8); ALBUMIN 4.2 g/dL (4.0-5.0); ALKALINE PHOSPHATASE 79 U/L (35-104); AST/SGOT 23 U/L (10.0-35.0)
[2017-09-16 18:07] LABS: ACETAMINOPHEN < 5.0 ug/mL (10.0-30.0); SALICYLATE < 0.3 mg/dL (2.8-20)
[2017-09-16 18:13] LABS: THYROID STIMULATING HORMONE 0.84 uIU/mL (0.270-4.20)
[2017-09-17] MEDS ORDERED: POTASSIUM CHLORIDE/D5-0.9%NACL 20 MEQ/1,000 ML BAG IV ONE (08:08)
[2017-09-17] MEDS ORDERED: DEXTROSE 5 % AND 0.9 % NACL 1,000 ML IV PRN (15:39)
== END 2017-09-17 17:02 ==
LOC: ER 16:05
DX: F20.2 Catatonic schizophrenia (principal); F21 Schizotypal disorder
CPT/HCPCS: 99285 ×2; 96374; 85025; 85730; 85610; 80053; 81001; 84443; 80305; G0480 ×3; 80320; 80329; J3480

== ENCOUNTER 2019-02-27 16:06 | Emergency (ER) | payer MEDICARE, MEDICAID ==
[2019-02-27] MEDS ORDERED: IPRATROPIUM/ALBUTEROL (0.5MG/3MG) NEB INH ONE (16:17)
[2019-02-27] MEDS ORDERED: 0.9 % SODIUM CHLORIDE 1,000 ML BAG IV ONE (16:59)
--- NOTE | 2019-02-27 17:00 | Emergency Department Record ---
History of Present Illness - General Chief Complaint: Shortness of breath Stated Complaint: SHORT OF BREATHE Time Seen by Provider: 02/27/19 16:18 Source: Patient, RN ([facility] Staff Member) Mode of Arrival: EMS Limitations: No limitations - History of Present Illness Initial Comments: 58 yo female presents with her [facility] staff member due to decreased energy, decreased activity, weakness, shortness of breath, and refusing her medications for one week. She will urinate and/or defecate in her pants as well over the last several weeks. The staff member states some of this has been observed over the course of about one month. The patient has a history of catatonia. The current symptoms are similar to the gradual declines she has had historically leading to her sleeping constantly, not eating, not compliant with her medications. She has times where she becomes less verbal and is starting to significantly not participate in her ADL's per staff member. She has a history of catatonia. The current history is similar to prior episodes. In the past it has advanced to points of completely being non verbal, not eating or drinking. PMHx Schizoaffective/Bipolar with episodes of catatonia. Onset/Timin -: Hour(s) Severity: Moderate Improves With: Oxygen, Rest, Upright position Known History Of: Asthma Context: Medication noncompliance Associated Symptoms: Cough Treatments Prior to Arrival: Oxygen - Related Data Home Oxygen Therapy: Yes Home Oxygen Amount: 2 Liters Home Medications Medication Instructions Recorded Confirmed Last Taken Albuterol Sulfate [Proair Hfa] 1 - 2 puff IH .EVERY 4-6 HOURS PRN 02/27/19 02/27/19 02/26/19 Amantadine HCl [Amantadine] 100 mg PO BID 02/27/19 02/27/19 02/26/19 Cholecalciferol (Vitamin D3) 50,000 unit PO WEEKLY 02/27/19 02/27/19 02/26/19 [Vitamin D3] Desvenlafaxine Succinate [Pristiq] 50 mg PO DAILY 02/27/19 02/27/19 02/26/19 Folic Acid 0.4 mg PO DAILY 02/27/19 02/27/19 Unknown [place] Carbonate [[place] 300 mg PO BID 02/27/19 02/27/19 02/26/19 Carbonate ER] Metformin HCl 500 mg PO BID 02/27/19 02/27/1902/26/19 Phentermine HCl 37.5 mg PO DAILY 02/27/19 02/27/19 02/26/19 Umeclidinium Brm/Vilanterol Tr 1 each IH DAILY 02/27/19 02/27/19 02/26/19 [Anoro Ellipta 62.5-25 Mcg INH] Vortioxetine Hydrobromide 20 mg PO DAILY 02/27/19 02/27/19 02/26/19 [Brintellix] Allergies Allergy/AdvReac Type Severity Reaction Status Date / Time haloperidol [From Haldol] Allergy PT UNSURE Verified 09/16/17 17:15 OF REACTION haloperidol lactate Allergy PT UNSURE Verified 09/16/17 17:15 [From Haldol] OF REACTION lamotrigine [From Lamictal] Allergy PT UNSURE Verified 09/16/17 17:15 OF REACTION loxapine HCl [From Loxitane] Allergy PT UNSURE Verified 09/16/17 17:15 OF REACTION loxapine succinate Allergy PT UNSURE Verified 09/16/17 17:15 [From Loxitane] OF REACTION Sulfa (Sulfonamide Allergy PT UNSURE Verified 09/16/17 17:15 Antibiotics) OF REACTION Travel Screening - Travel/Exposure Within Last 30 Days Have you traveled within the last 30 days?: No - Travel Symptoms Symptom Screening: None Review of Systems Constitutional: Reports: Malaise, Weakness. Denies: Chills Eyes: Denies: Eye discharge, Eye pain, Photophobia, Vision change ENT: Denies: Congestion, Throat pain Respiratory: Reports: Dyspnea. Denies: Cough, Hemoptysis, Stridor, Wheezes Cardiovascular: Denies: Chest pain, Palpitations, Syncope Endocrine: Reports: Fatigue. Denies: Polydipsia, Polyuria Gastrointestinal: Denies: Abdominal pain, Diarrhea, Nausea, Vomiting Genitourinary: Denies: Dysuria, Urgency Musculoskeletal: Denies: Arthralgia, Back pain, Joint swelling, Myalgia Skin: Denies: Bruising, Change in color, Rash Neurological: Reports: Weakness. Denies: Headache Psychiatric: Reports: Depression, Other Hematological/Lymphatic: Denies: Blood Clots, Easy bleeding, Easy bruising Past Medical History - SOCIAL HISTORY Smoking Status: Unknown if ever smoked - RESPIRATORY Hx Respiratory Disorders: No - CARDIOVASCULAR Hx Cardio Disorders: Yes Hx Deep Vein Thrombosis: Yes - NEURO Hx Neuro Disorders: No - GI Hx GI Disorders: No - Hx Genitourinary Disorders: No - ENDOCRINE Hx Endocrine Disorders: No - MUSCULOSKELETAL Hx Musculoskeletal Disorders: No - PSYCH Hx Psych Problems: Yes Hx Anxiety: Yes Hx Behavior Problems: Yes (schizoaffective disorder) Hx Depression: Yes (bipolar) - HEMATOLOGY/ONCOLOGY Hx Hematology/Oncology Disorders: No Family Medical History Any Significant Family History?: No Family Hx Comment (NOT TO BE USED IN PLACE OF ITEMS BELOW): unknown Physical Exam - General General Appearance: Alert, Oriented x3, Cooperative, Other (She is awake and answers by questions. She is not confused. Flat affect) Limitations: No limitations - Head Head exam: Atraumatic, Normal inspection - Eye Eye exam: Normal appearance, PERRL. negative: Conjunctival injection, Scleral icterus - ENT ENT exam: Normal exam, Mucous membranes moist, Normal orophraynx Ear exam: Normal external inspection Nasal Exam: Normal inspection Mouth exam: Normal external inspection - Neck Neck exam: Normal inspection, Full ROM - Respiratory Respiratory exam: Normal lung sounds bilaterally, Other (Lungs are clear, she has a relaxed work of breathing). negative: Decreased breath sounds, Prolonged expiratory, Wheezes - Cardiovascular Cardiovascular Exam: Regular rate, Normal rhythm, Normal heart sounds - GI/Abdominal GI/Abdominal exam: Soft, Other (obese abdomen, soft ). negative: Guarding, Tenderness - Rectal Rectal exam: Deferred - exam: Deferred - Extremities Extremities exam: Normal inspection - Back Back exam: Denies: CVA tenderness (R), CVA tenderness (L) - Neurological Neurological exam: Alert, Oriented X3. negative: Normal gait - Psychiatric Psychiatric exam: Flat affect - Skin Skin exam: Dry, Intact, Normal color, Warm Course Vital Signs 02/27/19 02/27/19 16:11 16:19 Temperature 99.0 F Pulse Rate 80 75 Respiratory 28 H 20 Rate Blood Pressure 139/75 Pulse Ox 90 L 94 L - Reevaluation(s) Reevaluation #1: The patient states she "just doesn't want to take her medications" No other specific reasons She states she feels like she does when she becomes catatonic. She is tire all the time over the last month. 02/27/19 17:24 02/27/19 18:22 The labs results were reviewed There are no acute significant abnormalities of the CBC There are no acute significant abnormalities of the CMP The UA was reviewed. No signs of infection or significant acute abnormality The UDS is positive for amphetamines Alcohol is negative Salicylates is negative 02/27/19 18:24 The patient is on lithium. This is a send out lab test. I explained to the patient and staff this creates a significant delay in the time to medically clear the patient for [facility] referral 02/27/19 18:56 The case was reviewed with Dr Gibbons The lithium level is pending but sent to [facility] Once reviewed the patient will be evaluated as medically cleared and [facility] will be called See her documentation for further information. 02/28/19 07:06 The case was turned over at shift change by Dr Gibbons. The RN report is the patient is cooperative, sleeps but conversational, she has eaten some food and drank fluids. [facility] ([facility]) was contacted during the night. No progress for admission by [facility]. Instructions from [facility] to RN are to call at 8am. 02/28/19 07:25 Report given was [place] is 1.2 02/28/19 08:01 Pharmacy consulted to assist with daily medications/substitutions if not avail able. 02/28/19 08:19 Pharmacy assisted on medications and substitutions. No lithium or amantadine a vailable at [facility] 02/28/19 08:26 RN updated by Kirsty at [facility]. [facility] is waiting for response from [facility] and [facility]. 02/28/19 08:27 The patient's clinical condition remains stable. She is remains medically cleared. 02/28/19 08:44 RN informed [facility] declined the patient 02/28/19 08:45 02/28/19 11:11 Update from [facility]. Kirsty at [facility] continues to work on the case. Awaiting updates. The patient remains cooperative. RN reports she is eating and assisted by participating with using the restroom 02/28/19 11:28 02/28/19 12:08 The patient has improved significantly over the ED stay. She is eating. She is compliant with medications. She participated in ADLs. She is not longer an acute threat to her self. Nathaly the adult protective caseworker through [facility] recommends return to the [facility] with instructions to return to an ER or Crisis Services if the behavior changes. Beatrice of the [facility] (per the RN) was made aware and accepts the patient back. The patient has been in the ED 20 hours without any signs of any other acute medical condition. 02/28/19 12:26 Eating lunch. 02/28/19 12:54 Kirsty [facility] informed the RN since [place] is on a court order she does not require a negative certification. She may be discharged at this time to the [facility]. Medical Decision Making - Lab Data Result diagrams: 02/27/19 17:05 02/27/19 17:05 Disposition Disposition: Discharge Clinical Impression: Weakness, Depression, Schizoaffective disorder Disposition: Home, Self-Care Condition: (2) Stable Instructions: Depression (ED) Additional Instructions: Take your medications Eat regular meals Do not take your oxygen off Return, be seen, or go to Crisis Services if the behavior returns or if [facility] is not cooperating with her care or activities of daily living Forms: Patient Portal Access Time of Disposition: 12:54 Quality - Quality Measures Quality Measures: N/A - Blood Pressure Screening Does Patient Have Any of the Following: No Blood Pressure Classification: Pre-Hypertensive BP Reading Systolic Measurement: 139 Diastolic Measurement: 75 Screening for High Blood Pressure: < Pre-Hypertensive BP, F/U Documented > [G8950] Pre-Hypertensive Follow-up Interventions: Referral to alternative/primary care provider.
[2019-02-27 17:17] LABS: ABSOLUTE NEUTROPHIL COUNT 8.52; BASO % 0.4 % (0-6); EOS % 4.2 % (0-6); GRAN % 76.3 % (47-80); HEMATOCRIT 50.4 % (35.0-47.0); HEMOGLOBIN 15.8 gm/dl (11.6-16.0); LYMPH % 10.8 % (16-45); MEAN CELL VOLUME 97.1 fl (81-97); MEAN CORPUSCULAR HEMOGLOBIN 30.4 pg (27-33); MEAN CORPUSCULAR HGB CONC 31.3 g/dl (32-36); MEAN PLATELET VOLUME 9.9 fl (7.4-10.4); MONO % 8.3 % (0-9); PLATELET COUNT 234 K/uL (130-400); RED BLOOD COUNT 5.19 M/uL (3.80-5.40); RED CELL DISTRIBUTION WIDTH 14.4 % (11.5-14.5); WHITE BLOOD COUNT W/O DIFF 11.2 K/uL (4.2-12.2)
[2019-02-27 17:29] LABS: BLOOD UREA NITROGEN 11 mg/dL (6-20); CREATININE 0.8 mg/dL (0.5-0.9); EST GLOMERULAR FILTRATION RATE > 60 mL/min
[2019-02-27 17:30] LABS: TOTAL PROTEIN 6.8 g/dL (6.6-8.7)
[2019-02-27 17:32] LABS: GLUCOSE,RANDOM 124 mg/dL (74-109)
[2019-02-27 17:35] LABS: ALB/GLOB RATIO 1.6 (1.1-1.8); ALBUMIN 4.2 g/dL (4.0-5.0); ALKALINE PHOSPHATASE 85 U/L (35-104); ALT/SGPT 30 U/L (<33); AST/SGOT 24 U/L (10.0-35.0)
[2019-02-27 17:36] LABS: SALICYLATE < 0.3 mg/dL (2.8-20)
[2019-02-27 17:45] LABS: THYROID STIMULATING HORMONE 7.67 uIU/mL (0.270-4.20)
[2019-02-27 17:59] LABS: URINE APPEARANCE CLEAR; URINE BILIRUBIN NEGATIVE (NEGATIVE); URINE BLOOD NEGATIVE (NEGATIVE); URINE COLOR YELLOW; URINE GLUCOSE (UA) NEGATIVE (NEGATIVE); URINE KETONE NEGATIVE (NEGATIVE); URINE LEUKOCYTE ESTERASE NEGATIVE (NEGATIVE); URINE NITRITE NEGATIVE (NEGATIVE); URINE PROTEIN NEGATIVE (NEGATIVE); URINE UROBILINOGEN 0.2 E.U./dL (0.20 - 1.00)
[2019-02-27 18:19] LABS: AMPHETAMINE SCREEN URINE DETECTED; BARBITURATE SCREEN URINE NOT DETECTED; BENZODIAZEPINE SCREEN URINE NOT DETECTED; COCAINE SCREEN URINE NOT DETECTED; METHADONE SCREEN URINE NOT DETECTED; METHAMPHETAMINE SCREEN NOT DETECTED; OPIATE SCREEN URINE NOT DETECTED; OXYCODONE SCREEN URINE NOT DETECTED; PHENCYCLIDINE SCREEN URINE NOT DETECTED; PROPOXYPHENE SCREEN URINE NOT DETECTED; THC SCREEN URINE NOT DETECTED; TRICYCLIC ANTIDEPRESSANT SCRN NOT DETECTED
--- NOTE | 2019-02-28 02:09 | Emergency Department Record ---
History of Present Illness - General Chief Complaint: Shortness of breath Stated Complaint: SHORT OF BREATHE Time Seen by Provider: 02/27/19 16:18 Source: Patient, RN ([facility] Staff Member) Mode of Arrival: EMS Limitations: No limitations - History of Present Illness Onset/Timin -: Hour(s) Severity: Moderate Improves With: Oxygen, Rest, Upright position Known History Of: Asthma Context: Medication noncompliance Associated Symptoms: Cough Treatments Prior to Arrival: Oxygen - Related Data Home Oxygen Therapy: Yes Home Oxygen Amount: 2 Liters Home Medications Medication Instructions Recorded Confirmed Last Taken Albuterol Sulfate [Proair Hfa] 1 - 2 puff IH .EVERY 4-6 HOURS PRN 02/27/19 02/27/19 02/26/19 Amantadine HCl [Amantadine] 100 mg PO BID 02/27/19 02/27/19 02/26/19 Cholecalciferol (Vitamin D3) 50,000 unit PO WEEKLY 02/27/19 02/27/19 02/26/19 [Vitamin D3] Desvenlafaxine Succinate [Pristiq] 50 mg PO DAILY 02/27/19 02/27/19 02/26/19 Folic Acid 0.4 mg PO DAILY 02/27/19 02/27/19 Unknown Wolford Carbonate [Wolford 300 mg PO BID 02/27/19 02/27/19 02/26/19 Carbonate ER] Metformin HCl 500 mg PO BID 02/27/19 02/27/19 02/26/19 Phentermine HCl 37.5 mg PO DAILY 02/27/19 02/27/19 02/26/19 Umeclidinium Brm/Vilanterol Tr 1 each IH DAILY 02/27/19 02/27/19 02/26/19 [Anoro Ellipta 62.5-25 Mcg INH] Vortioxetine Hydrobromide 20 mg PO DAILY 02/27/19 02/27/19 02/26/19 [Brintellix] Allergies Allergy/AdvReac Type Severity Reaction Status Date / Time haloperidol [From Haldol] Allergy PT UNSURE Verified 09/16/17 17:15 OF REACTION haloperidol lactate Allergy PT UNSURE Verified 09/16/17 17:15 [From Haldol] OF REACTION lamotrigine [From Lamictal] Allergy PT UNSURE Verified 09/16/17 17:15 OF REACTION loxapine HCl [From Loxitane] Allergy PT UNSURE Verified 09/16/17 17:15 OF REACTION loxapine succinate Allergy PT UNSURE Verified 09/16/17 17:15 [From Loxitane] OF REACTION Sulfa (Sulfonamide Allergy PT UNSURE Verified 09/16/17 17:15 Antibiotics) OF REACTION Travel Screening - Travel/Exposure Within Last 30 Days Have you traveled within the last 30 days?: No - Travel Symptoms Symptom Screening: None Review of Systems Constitutional: Reports: Malaise, Weakness. Denies: Chills Eyes: Denies: Eye discharge, Eye pain, Photophobia, Vision change ENT: Denies: Congestion, Throat pain Respiratory: Reports: Dyspnea. Denies: Cough, Hemoptysis, Stridor, Wheezes Cardiovascular: Denies: Chest pain, Palpitations, Syncope Endocrine: Reports: Fatigue. Denies: Polydipsia, Polyuria Gastrointestinal: Denies: Abdominal pain, Diarrhea, Nausea, Vomiting Genitourinary: Denies: Dysuria, Urgency Musculoskeletal: Denies: Arthralgia, Back pain, Joint swelling, Myalgia Skin: Denies: Bruising, Change in color, Rash Neurological: Reports: Weakness. Denies: Headache Psychiatric: Reports: Depression, Other Hematological/Lymphatic: Denies: Blood Clots, Easy bleeding, Easy bruising Past Medical History - SOCIAL HISTORY Smoking Status: Unknown if ever smoked - RESPIRATORY Hx Respiratory Disorders: No - CARDIOVASCULAR Hx Cardio Disorders: Yes Hx Deep Vein Thrombosis: Yes - NEURO Hx Neuro Disorders: No - GI Hx GI Disorders: No - Hx Genitourinary Disorders: No - ENDOCRINE Hx Endocrine Disorders: No - MUSCULOSKELETAL Hx Musculoskeletal Disorders: No - PSYCH Hx Psych Problems: Yes Hx Anxiety: Yes Hx Behavior Problems: Yes (schizoaffective disorder) Hx Depression: Yes (bipolar) - HEMATOLOGY/ONCOLOGY Hx Hematology/Oncology Disorders: No Family Medical History Any Significant Family History?: No Family Hx Comment (NOT TO BE USED IN PLACE OF ITEMS BELOW): unknown Physical Exam - General Limitations: No limitations Course Vital Signs 02/27/19 02/27/19 02/27/19 16:11 16:19 20:19 Temperature 99.0 F Pulse Rate 80 75 Pulse Rate [ 71 Pulse Ox Probe] Respiratory 28 H 20 18 Rate Blood Pressure 139/75 Blood Pressure 111/65 [Left Arm] Pulse Ox 90 L 94 L 94 L 02/27/19 02/28/19 22:39 00:31 Temperature Pulse Rate Pulse Rate [ 71 87 Pulse Ox Probe] Respiratory 22 18 Rate Blood Pressure Blood Pressure 120/61 139/78 [Left Arm] Pulse Ox 94 L 92 L - Reevaluation(s) Reevaluation #1: 02/28/19 02:08 pt doing well. waiting on bed Reevaluation #2: 02/28/19 07:02 pt did well. no problems. still woiting for a bed Medical Decision Making - Lab Data Result diagrams: 02/27/19 17:05 02/27/19 17:05 Lab Results 02/27/19 02/27/19 02/27/19 Range/Units 17:05 17:05 17:05 WBC 11.2 (4.2-12.2) K/uL RBC 5.19 (3.80-5.40) M/uL Hgb 15.8 (11.6-16.0) gm/dl Hct 50.4 H (35.0-47.0) % MCV 97.1 H (81-97) fl MCH 30.4 (27-33) pg MCHC 31.3 L (32-36) g/dl RDW 14.4 (11.5-14.5) % Plt Count 234 (130-400) K/uL MPV 9.9 (7.4-10.4) fl Gran % 76.3 (47-80) % Lymphocytes % 10.8 L (16-45) % Monocytes % 8.3 (0-9) % Eosinophils % 4.2 (0-6) % Basophils % 0.4 (0-6) % Absolute Neutrophils 8.52 Sodium 140 (136-145) mmol/L Potassium 4.6 H (3.4-4.5) mmol/L Chloride 97 L (98-107) mmol/L Carbon Dioxide 34.0 H (22-29) mmol/L Anion Gap 9.0 (7-16) BUN 11 (6-20) mg/dL Creatinine 0.8 (0.5-0.9) mg/dL Estimated GFR > 60 mL/min Random Glucose 124 H (74-109) mg/dL Calcium 10.2 H (8.6-10.0) mg/dL Total Bilirubin 0.30 (0.2-1.0) mg/dL AST 24 (10.0-35.0) U/L ALT 30 (<33) U/L Alkaline Phosphatase 85 (35-104) U/L Total Protein 6.8 (6.6-8.7) g/dL Albumin 4.2 (4.0-5.0) g/dL Globulin 2.6 (1.4-4.8) gm/dL Albumin/Globulin Ratio 1.6 (1.1-1.8) TSH 7.67 H (0.270-4.20) uIU/mL Urine Color Urine Appearance Urine pH (5.0-8.0) Ur Specific Sidney (1.002-1.030) Urine Protein (NEGATIVE) Urine Glucose (UA) (NEGATIVE) Urine Ketones (NEGATIVE) Urine Blood (NEGATIVE) Urine Nitrite (NEGATIVE) Urine Bilirubin (NEGATIVE) Urine Urobilinogen (0.20 - 1.00) E.U./dL Ur Leukocyte Esterase (NEGATIVE) Salicylates < 0.3 L (2.8-20) mg/dL Urine Opiates Screen Ur Oxycodone Screen Urine Methadone Screen Ur Propoxyphene Screen Acetaminophen (10.0-30.0) ug/mL Ur Barbituates Screen Ur Tricyclics Screen Ur Phencyclidine Scrn Ur Amphetamine Screen U Methamphetamines Scrn U Benzodiazepines Scrn Urine Cocaine Screen Urine Cannabis Screen Ethyl Alcohol 0.010 (0-0.010) g/dL 02/27/19 02/27/19 02/27/19 Range/Units 17:05 17:50 17:50 WBC (4.2-12.2) K/uL RBC (3.80-5.40) M/uL Hgb (11.6-16.0) gm/dl Hct (35.0-47.0) % MCV (81-97) fl MCH (27-33) pg MCHC (32-36) g/dl RDW (11.5-14.5) % Plt Count (130-400) K/uL MPV (7.4-10.4) fl Gran % (47-80) % Lymphocytes % (16-45) % Monocytes % (0-9) % Eosinophils % (0-6) % Basophils % (0-6) % Absolute Neutrophils Sodium (136-145) mmol/L Potassium (3.4-4.5) mmol/L Chloride (98-107) mmol/L Carbon Dioxide (22-29) mmol/L Anion Gap (7-16) BUN (6-20) mg/dL Creatinine (0.5-0.9) mg/dL Estimated GFR mL/min Random Glucose (74-109) mg/dL Calcium (8.6-10.0) mg/dL Total Bilirubin (0.2-1.0) mg/dL AST (10.0-35.0) U/L ALT (<33) U/L Alkaline Phosphatase (35-104) U/L Total Protein (6.6-8.7) g/dL Albumin (4.0-5.0) g/dL Globulin (1.4-4.8) gm/dL Albumin/Globulin Ratio (1.1-1.8) TSH (0.270-4.20) uIU/mL Urine Color Yellow Urine Appearance Clear Urine pH 7.5 (5.0-8.0) Ur Specific Sidney 1.015 (1.002-1.030) Urine Protein Negative (NEGATIVE) Urine Glucose (UA) Negative (NEGATIVE) Urine Ketones Negative (NEGATIVE) Urine Blood Negative (NEGATIVE) Urine Nitrite Negative (NEGATIVE) Urine Bilirubin Negative (NEGATIVE) Urine Urobilinogen 0.2 (0.20 - 1.00) E.U./dL Ur Leukocyte Esterase Negative (NEGATIVE) Salicylates (2.8-20) mg/dL Urine Opiates Screen Not detected Ur Oxycodone Screen Not detected Urine Methadone Screen Not detected Ur Propoxyphene Screen Not detected Acetaminophen < 5.0 L (10.0-30.0) ug/mL Ur Barbituates Screen Not detected Ur Tricyclics Screen Not detected Ur Phencyclidine Scrn Not detected Ur Amphetamine Screen Detected U Methamphetamines Scrn Not detected U Benzodiazepines Scrn Not detected Urine Cocaine Screen Not detected Urine Cannabis Screen Not detected Ethyl Alcohol (0-0.010) g/dL Disposition Clinical Impression: Weakness, Depression, Schizoaffective disorder Disposition: [facility] Condition: (2) Stable Forms: Patient Portal Access Quality - Quality Measures Quality Measures: N/A - Blood Pressure Screening Does Patient Have Any of the Following: No Blood Pressure Classification: Pre-Hypertensive BP Reading Systolic Measurement: 139 Diastolic Measurement: 75 Screening for High Blood Pressure: < Pre-Hypertensive BP, F/U Documented > [[id number]] Pre-Hypertensive Follow-up Interventions: Follow-up with rescreen every year.
[2019-02-28] MEDS ORDERED: 0.9 % SODIUM CHLORIDE 1000ML 1,000 ML IV PRN (07:02)
[2019-02-28] MEDS ORDERED: ALBUTEROL SULFATE (0.083%) 2.5 MG/3 ML NEB INH ONE (07:08)
[2019-02-28] MEDS ORDERED: VENLAFAXINE ER 37.5 MG CAPSULE PO STA (08:18)
== END 2019-02-28 13:42 | disposition home or self-care (01) ==
LOC: ER 16:06
DX: F25.1 Schizoaffective disorder, depressive type (principal); R53.1 Weakness; R06.02 Shortness of breath; R05 Cough; R53.83 Other fatigue; R32 Unspecified urinary incontinence; R15.9 Full incontinence of feces
CPT/HCPCS: 80053; 80305; 80320; 80329; 81003; 84443; 85025; 94640; 99284; J7030; J7613